=== PATIENT | female | born 1960 | race Caucasian/White ===

== ENCOUNTER 2017-12-15 11:06 | Emergency (ER) | payer OTHER ==
[~2017-12-15] VITALS: Ht 170.2 cm; Wt 69.1 kg
[~2017-12-15 11:06] MED LIST: CEPH250C2 PO; HYDR25TA PO; LISI-618 PO; PROZ10 PO
[2017-12-15 12:46] VITALS: BP 149/75
== END 2017-12-15 12:56 | disposition home or self-care (01) ==
LOC: EMS 11:07
DX: J06.9 Acute upper respiratory infection, unspecified (principal); I10 Essential (primary) hypertension; J02.9 Acute pharyngitis, unspecified; F41.9 Anxiety disorder, unspecified; Z79.899 Other long term (current) drug therapy
CPT/HCPCS: 99283